=== PATIENT | male | born 1955 | race Caucasian/White ===

== ENCOUNTER 2018-04-05 15:18 | Emergency (ER) | payer OTHER ==
[~2018-04-05] VITALS: Ht 182.9 cm; Wt 77.0 kg
[~2018-04-05 15:18] MED LIST: ADVA250A INH; AMLO10 PO; LOVA10TA PO; SPIRCAP INH; VITA200017 PO
[2018-04-05 15:23] VITALS: BP 149/76; PULSE 72; RESP 16; TEMP 97.6; O2SAT 99
[2018-04-05] MEDS ORDERED: LISI2.5T3 PO (15:47)
[2018-04-05] MEDS ORDERED: BUDE20SU NASAL (15:47)
[2018-04-05] MEDS ORDERED: AMLO1POW4 PO (15:47)
[2018-04-05] MEDS ORDERED: ATORVASTATIN CALCIUM PO (15:47)
[2018-04-05] MEDS ORDERED: VITA1000 PO (15:47)
[2018-04-05] MEDS ORDERED: FLUT1INH7 INH (15:47)
[2018-04-05] MEDS ORDERED: METF500T PO (15:47)
[2018-04-05] MEDS ORDERED: XOLA150S SQ (15:47)
[2018-04-05] MEDS ORDERED: MONT10TA2 PO (15:47)
--- NOTE | 2018-04-05 15:58 | PD ---
HPI Chief Complaint: Abdominal Pain Time Seen by Provider: 15:31 Travel History International Travel<30 days: No Contact w/Intl Traveler<30days: No Traveled to known affect area: No History of Present Illness HPI pt is a pleasant 63 y.o male who presents to the ED with a cc of "pulsating abdominal pain" . Symptoms started this morning pt states that this morning when he attempted to have a bowel movement he felt like he could not empty his bowel completely. He then started having constant, 8/10 pulsating abdominal pain. Pain is throughout the entire abdomen with no radiation. Also reports inability to urinated. Denies any lightheadedness, SOB, CP, numbness or weakness of his extremities. Denies recent fever, nausea, vomiting. States pain is severe, intermittent, associated signs symptoms and duration as above History Past Medical History Tetanus Vaccination: Unknown Influenza Vaccination: Yes Social History Alcohol Use: Yes ( A FEW GLASSES OF WINE ON BEER ON THE WEEKENDS) Tobacco Use: No Allergies-Medications (Allergen,Severity, Reaction): Coded Allergies: aspirin (Verified Allergy, Severe, ANAPHYLAXIS, 04/05/18) Reported Meds & Prescriptions Reported Meds & Active Scripts Active Ultram (Tramadol HCl) 50 Mg Tab 50 Mg PO Q6H PRN 7 Days Ciprofloxacin (Ciprofloxacin HCl) 500 Mg Tab 500 Mg PO BID 7 Days Reported Vitamin D-1000 (Cholecalciferol) 1,000 Unit Tab 1,000 Units PO BID Xolair Inj (Omalizumab) 150 Mg Vial Unknown Dose SQ Q14D Budesonide Nasal [place] (Budesonide (Nasal)) 32 Mcg/Actuation [place]ka 0.6 Mg NASAL BID Lisinopril 2.5 Mg Tab 2.5 Mg PO DAILY Metformin (Metformin HCl) 500 Mg Tab 500 Mg PO DAILY With a meal [Atorvastatin Calcium] 40 Mg PO DAILY Amlodipine Besylate 100 % Powder 10 Mg PO DAILY Breo Ellipta Inh (Fluticasone/Vilanterol) 200-25 Mcg/Act Inh 1 Puff INH DAILY Use daily at the same time. Singulair (Montelukast Sodium) 10 Mg Tab 10 Mg PO HS Review of Systems Except as stated in HPI: all other systems reviewed are Neg Physical Exam Narrative GENERAL: Well-developed well-nourished, appears minimally uncomfortable peer SKIN: Warm and dry. HEAD: Atraumatic. Normocephalic. EYES: Pupils equal and round. No scleral icterus. No injection or drainage. ENT: No nasal bleeding or discharge. Mucous membranes pink and moist. NECK: Trachea midline. No JVD. CARDIOVASCULAR: Regular rate and rhythm. RESPIRATORY: No accessory muscle use. Clear to auscultation. Breath sounds equal bilaterally. GASTROINTESTINAL: Abdomen obese but soft, possibly minimally distended with generalized tenderness throughout. No CVA tenderness. Bowel sounds are hypoactive. No masses appreciated. MUSCULOSKELETAL: Extremities without clubbing, cyanosis, or edema. No obvious deformities. NEUROLOGICAL: Awake and alert. No obvious cranial nerve deficits. Motor grossly within normal limits. Five out of 5 muscle strength in the arms and legs. Normal speech. PSYCHIATRIC: Appropriate mood and affect; insight and judgment normal. Data Data Last Documented VS Vital Signs Date Time Temp Pulse Resp B/P (MAP) Pulse Ox O2 Delivery O2 Flow Rate FiO2 04/05/18 18:40 72 16 138/72 (94) 98 Room Air 04/05/18 15:23 97.6 Orders Orders Complete Blood Count With Diff (04/05/18 16:04) Comprehensive Metabolic Panel (04/05/18 16:04) Lipase (04/05/18 16:04) Prothrombin Time / Inr (Pt) (04/05/18 16:04) Act Partial Throm Time (Ptt) (04/05/18 16:04) Urinalysis - C+S If Indicated (04/05/18 16:04) Ct Abd/Pel W Iv Contrast(Rout) (04/05/18 16:04) Iv Access Insert/Monitor (04/05/18 16:04) Ecg Monitoring (04/05/18 16:04) Oximetry (04/05/18 16:04) Morphine Inj (Morphine Inj) (04/05/18 16:15) Sodium Chloride 0.9% Flush (Ns Flush) (04/05/18 16:15) Electrocardiogram (04/05/18 16:04) Ed Poc Ultrasound (04/05/18 ) Lactic Acid (04/05/18 16:12) Iodixanol 320 Inj (Rad Ct) (Visipaque 32 (04/05/18 17:31) Sodium Chlor 0.9% 1000 Ml Inj (Ns 1000 M (04/05/18 18:00) Ciprofloxacin (Cipro) (04/05/18 18:15) Ed Discharge Order (04/05/18 18:32) Labs Laboratory Tests Test 04/05/18 16:23 04/05/18 16:30 White Blood Count 12.5 TH/MM3 Red Blood Count 4.98 MIL/MM3 Hemoglobin 14.9 GM/DL Hematocrit 43.9 % Mean Corpuscular Volume 88.1 FL Mean Corpuscular Hemoglobin 29.9 PG Mean Corpuscular Hemoglobin Concent 33.9 % Red Cell Distribution Width 12.6 % Platelet Count 278 TH/MM3 Mean Platelet Volume 8.2 FL Neutrophils (%) (Auto) 76.2 % Lymphocytes (%) (Auto) 10.2 % Monocytes (%) (Auto) 11.2 % Eosinophils (%) (Auto) 1.9 % Basophils (%) (Auto) 0.5 % Neutrophils # (Auto) 9.5 TH/MM3 Lymphocytes # (Auto) 1.3 TH/MM3 Monocytes # (Auto) 1.4 TH/MM3 Eosinophils # (Auto) 0.2 TH/MM3 Basophils # (Auto) 0.1 TH/MM3 CBC Comment DIFF FINAL Differential Comment Prothrombin Time 10.3 SEC Prothromb Time International Ratio 1.0 RATIO Activated Partial Thromboplast Time 27.2 SEC Blood Urea Nitrogen 20 MG/DL Creatinine 1.40 MG/DL Random Glucose 132 MG/DL Total Protein 8.0 GM/DL Albumin 3.7 GM/DL Calcium Level 9.6 MG/DL Alkaline Phosphatase 91 U/L Aspartate Amino Transf (AST/SGOT) 30 U/L Alanine Aminotransferase (ALT/SGPT) 35 U/L Total Bilirubin 0.4 MG/DL Sodium Level 139 MEQ/L Potassium Level 3.9 MEQ/L Chloride Level 107 MEQ/L Carbon Dioxide Level 26.3 MEQ/L Anion Gap 6 MEQ/L Estimat Glomerular Filtration Rate 51 ML/MIN Lactic Acid Level 1.1 mmol/L Lipase 148 U/L Urine Color YELLOW Urine Turbidity CLEAR Urine pH 6.0 Urine Specific [place] 1.015 Urine Protein TRACE mg/dL Urine Glucose (UA) NEG mg/dL Urine Ketones TRACE mg/dL Urine Occult Blood MOD Urine Nitrite NEG Urine Bilirubin NEG Urine Urobilinogen 0.2 MG/DL Urine Leukocyte Esterase NEG Urine RBC 4-9 /hpf Urine WBC 0-2 /hpf Urine Bacteria FEW /hpf Urine Hyaline Casts 0-2 /lpf Microscopic Urinalysis Comment CULT NOT INDICATED MDM Medical Decision Making Medical Screen Exam Complete: Yes Emergency Medical Condition: Yes Differential Diagnosis AAA, small bowel obstruction, mesenteric ischemia, Obstructive uropathy secondary to prostatic hyperplasia, nephrolithiasis Narrative Course Patient room to the emergency department, patient given pain medicine is feeling much better, UA does show hematuria, with a high index suspicion was CAT scan with IV contrast for possibility of ruptured aorta given his pulsatile pain and self-reported distention. Last 24 hours Impressions Abdomen/Pelvis CT 04/05/18 1604 Signed Impressions: CONCLUSION: 1. Single right kidney with multiple subcentimeter renal calculi. 2. Mild right-sided hydronephrosis, hydroureter and perinephric stranding due to a 4 mm stone which appears to have just passed through the UVJ and sits at t he base of the bladder on the right. 3. Diverticular disease of the descending and sigmoid colon without diverticul itis. 4. Benign-appearing hepatic cysts. CAT scan findings were discussed with him as well as Dr. Bernard Wallace. His creatinine minimally elevated at 1.4 and the patient only has 1 kidney. His UA is fairly unimpressive but given the amount of fat stranding will place him on empiric antibiotics. I discussed with him that as he only has one kidney by he needs to follow-up to have repeat lab work to make sure his creatinine is returning to normal baseline levels. Dr. Bernard Badillo would like to arrange this on an outpatient basis and states that if the patient calls the office tomorrow he can do that. Given that and his pain is well under control I do not see any indication for admission as he has adequate follow-up. I discussed with the patient symptomatic management home and return to ED criteria. Diagnosis Primary Impression: Kidney stone Additional Instructions: Call the [facility] office tomorrow to have repeat blood work. Med/Other Pt SpecificInfo: Prescription(s) given Scripts Tramadol (Ultram) 50 Mg Tab 50 MG PO Q6H Y for PAIN for 7 Days, #28 TAB 0 Refills Prov: Carlos Borja MD 04/05/18 Ciprofloxacin (Ciprofloxacin) 500 Mg Tab 500 MG PO BID for Infection for 7 Days, #14 TAB 0 Refills Prov: Carlos Borja MD 04/05/18 Disposition: 01 DISCHARGE HOME Condition: Stable Carlos Borja MD Apr 05, 2018 15:58
[2018-04-05 16:13] VITALS: RESP 16; O2SAT 97
[2018-04-05] MEDS ORDERED: MORPHINE SULFATE 4 MG/ML INJ IV PUSH ONE (16:15)
[2018-04-05] MEDS ORDERED: SODIUM CHLORIDE 0.9% FLUSH 10 ML FLUSH IV FLUSH PRN (16:15)
[2018-04-05 16:28] LABS: AUTOMATED NEUTROPHIL # 9.5 TH/MM3 (1.8-7.7); BASOPHIL # 0.1 TH/MM3 (0-0.2); BASOPHIL % 0.5 % (0.0-2.0); EOSINOPHIL # 0.2 TH/MM3 (0-0.4); EOSINOPHIL % 1.9 % (0.0-4.0); HEMATOCRIT 43.9 % (39.0-51.0); HEMOGLOBIN 14.9 GM/DL (13.0-17.0); LYMPH % 10.2 % (9.0-44.0); LYMPHOCYTE # 1.3 TH/MM3 (1.0-4.8); MEAN CELL VOLUME 88.1 FL (80.0-100.0); MEAN CORPUSCULAR HEMOGLOBIN 29.9 PG (27.0-34.0); MEAN CORPUSCULAR HGB CONC 33.9 % (32.0-36.0); MEAN PLATELET VOLUME 8.2 FL (7.0-11.0); MONO % 11.2 % (0.0-8.0); MONOCYTE # 1.4 TH/MM3 (0-0.9); NEUT % 76.2 % (16.0-70.0); PLATELET COUNT 278 TH/MM3 (150-450); RED BLOOD COUNT 4.98 MIL/MM3 (4.50-5.90); RED CELL DISTRIBUTION WIDTH 12.6 % (11.6-17.2); WHITE BLOOD COUNT 12.5 TH/MM3 (4.0-11.0)
[2018-04-05 16:38] LABS: CHLORIDE 107 MEQ/L (98-107); SODIUM (NA) 139 MEQ/L (136-145)
[2018-04-05 16:39] LABS: BILIRUBIN, URINE NEG (NEG); BLOOD, URINE MOD (NEG); GLUCOSE,URINE NEG (NEG); KETONE, URINE TRACE mg/dL (NEG); NITRITE,URINE NEG (NEG); URINE COLOR YELLOW (YELLW/STRAW); URINE LEUKOCYTE ESTERASE NEG (NEG)
[2018-04-05 16:41] LABS: ALBUMIN 3.7 GM/DL (3.4-5.0); BICARBONATE 26.3 MEQ/L (21.0-32.0); CALCIUM 9.6 MG/DL (8.5-10.1); PROTHROMBIN TIME - PATIENT 10.3 SEC (9.8-11.6)
[2018-04-05 16:42] LABS: BLOOD UREA NITROGEN 20 MG/DL (7-18); GLUCOSE,RANDOM 132 MG/DL (74-106)
[2018-04-05 16:44] LABS: ALT (GPT) 35 U/L (12-78); AST (GOT) 30 U/L (15-37)
[2018-04-05 16:45] LABS: GLOMERULAR FILTRATION RATE 51 ML/MIN (>89)
[2018-04-05 16:46] LABS: TOTAL BILIRUBIN ADULT 0.4 MG/DL (0.2-1.0)
[2018-04-05 16:47] LABS: ALKALINE PHOSPHATASE 91 U/L (45-117)
[2018-04-05 16:48] LABS: BACTERIA, URINE FEW /hpf; HYALINE CAST, URINE 0-2 /lpf (RARE); WBC, URINE 0-2 /hpf (0-5)
[2018-04-05] MEDS ORDERED: IODIXANOL 320 MG/ML 10 ML VIAL (for Rad CT) IVCONTRAST ONE (17:31)
--- NOTE | 2018-04-05 17:46 | RADRPT ---
EXAM DATE: 04/05/2018 5:36 PM EDT AGE/SEX: 63 years / Male INDICATIONS: Diffuse abdominal pain. CLINICAL DATA: This is the patient's initial encounter. Patient reports that signs and symptoms have been present for 1 day and indicates a pain score of 5/10. MEDICAL/SURGICAL HISTORY: Hypertension. Gastroesophageal reflux disease. Diabetes. 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 None. ORAL CONTRAST: No oral contrast ingested. RADIATION DOSE: 13.66 CTDI (mGy) COMPARISON: No prior [facility] exams available for comparison. TECHNIQUE: Multiple contiguous axial images were obtained through the abdomen and pelvis following b olus infusion of 50 ml Visipaque 320 (iodixanol) nonionic water-soluble contrast as a single exam d ose. No oral contrast ingested. Using automated exposure control and adjustment of the mA and/or kV according to patient size, the radiation dose was kept as low as reasonably achievable to obtain opti mal diagnostic quality images. FINDINGS: Lower Lungs: The visualized lower lungs are clear. Liver: Benign-appearing hepatic cysts. The largest in the right hepatic lobe superiorly measures appr oximately 1.2 cm in diameter. There is no dilation of the biliary tree. Spleen: Homogeneous density without enlargement. Pancreas: Unremarkable without mass or calcification. Kidneys: Patient has a single right kidney. There are multiple subcentimeter stones in the right davian al collecting system. Hydronephrosis, perinephric stranding and hydroureter are secondary to a 4 mm s tone which looks like it just past the J and 6 at the base of the bladder on the right. 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 Th edna measure approximately 7 to 8 mm in diameter. Adrenal Glands: Unremarkable. Aorta: The aorta and proximal iliac vessels are grossly unremarkable without aneurysmal dilation. Bowel/Mesentery: The bowel loops are grossly unremarkable. The cecum and sigmoid colon have a normal configuration. Diverticular disease of the descending and sigmoid colon without diverticulitis Abdominal Wall: Intact. Retroperitoneum: No evidence of adenopathy in the retrocrural, para-aortic, or deep pelvic regions. Bladder: Contours are smooth. Reproductive Organs: No abnormal masses or calcifications seen. Inguinal: Small bilateral inguinal hernias only containing fat. Bony Structures: Unremarkable. Post Contrast: No abnormal areas of enhancement seen. CONCLUSION: 1. Single right kidney with multiple subcentimeter renal calculi. 2. Mild right-sided hydronephrosis, hydroureter and perinephric stranding due to a 4 mm stone which appears to have just passed through the UVJ and sits at the base of the bladder on the right. 3. Diverticular disease of the descending and sigmoid colon without diverticulitis. 4. Benign-appearing hepatic cysts. Electronically signed by: Edward Quintana MD 04/05/2018 5:45 PM EDT
[2018-04-05] MEDS ORDERED: SODIUM CHLOR 0.9% 1000 ML INJ 1,000 ML IV ONE (18:00)
[2018-04-05] MEDS ORDERED: TRAM50 PO (18:09)
[2018-04-05] MEDS ORDERED: CIPR500T2 PO (18:09)
[2018-04-05] MEDS ORDERED: CIPROFLOXACIN 500 MG TAB PO ONE (18:15)
[2018-04-05 18:40] VITALS: BP 138/72; PULSE 72; RESP 16; O2SAT 98
[2018-04-06] MEDS ORDERED: LIPI40TA PO (10:24)
--- NOTE | 2018-04-06 16:43 | EKG ---
Date Performed: 04/05/2018 Time Performed: 16:15:09 PTAGE: 63 years EKG: Sinus rhythm WITH OCCASIONAL VENTRICULAR PREMATURE COMPLEXES MARKED LEFT AXIS DEVIATION INCOMPLETE RIGHT BUNDLE B RANCH BLOCK NONSPECIFIC T-WAVE ABNORMALITY ABNORMAL ECG PREVIOUS TRACING : 09/30/2011 11.09 Since the prior tracing, the frequent PVCs are new. DOCTOR: Gianna Wilkins Interpretating Date/Time 04/06/2018 16:42:12
== END 2018-04-05 18:42 | disposition home or self-care (01) ==
LOC: PHED 15:18
DX: N13.2 Hydronephrosis with renal and ureteral calculous obstruction (principal); Q60.0 Renal agenesis, unilateral; R94.31 Abnormal electrocardiogram [ECG] [EKG]; I10 Essential (primary) hypertension; E11.9 Type 2 diabetes mellitus without complications; K21.9 Gastro-esophageal reflux disease without esophagitis
CPT/HCPCS: 74177; 80053; 81001; 83605; 83690; 85025; 85610; 85730; 93005; 96374; 99285; J2270; J7030; Q9967